=== PATIENT | female | born 1960 | race Caucasian/White ===

== ENCOUNTER 2017-03-06 08:17 | Emergency (ER) | payer SELFPAY ==
[~2017-03-06] VITALS: Ht 152.4 cm; Wt 76.0 kg
[~2017-03-06 08:17] MED LIST: HYDR-3533 PO; NAPR500 PO
[2017-03-06 08:26] VITALS: BP 157/94; PULSE 74; RESP 16; TEMP 99.4; O2SAT 96
[2017-03-06 08:35] LABS: BLOOD, URINE NEG (NEG); GLUCOSE,URINE NEG (NEG); KETONE, URINE NEG (NEG); PH, URINE 5.5 (5.0-8.5)
[2017-03-06] MEDS ORDERED: METH10CO3 PO (08:39)
[2017-03-06 08:40] LABS: NITRITE,URINE POS (NEG)
[2017-03-06 08:41] LABS: METHOD OF COLLECTION CLEAN CATCH; URINE COLOR YELLOW (YELLW/STRAW)
[2017-03-06 08:42] LABS: BACTERIA, URINE FEW /hpf; COMMENT (UR) CULTURE INDICATED; CULTURE IF INDICATED CULTURE INDICATED; SQUAMOUS EPITHELIAL CELL URINE 0-5 /hpf (0-5); WBC, URINE 15-19 /hpf (0-5)
[2017-03-06] MEDS ORDERED: NITROFURANTOIN MONOHYD MACROCR 100 MG CAP PO ONE (08:45)
--- NOTE | 2017-03-06 08:45 | PD ---
HPI Chief Complaint: Complaint Time Seen by Provider: 08:45 Travel History International Travel<30 days: No Contact w/Intl Traveler<30days: No Traveled to known affect area: No History of Present Illness HPI 56-year-old female came to the emergency room with history of dysuria and feeling like she may have UTI. This has been going on for past couple days. Patient says she also has history of uterine prolapse and that has been bothering her. She does not have insurance currently and hence doesn't have a doctor. However upon asking she said she didn't want me to check her "down there"and she was okay without things are currently. Vital signs were otherwise stable. She has been taking [id number] Pyridium and it's making her nauseous. PFSH Past Medical History Narrative Medical List of her past medical, surgical, social and family history was reviewed from the nursing note. Hx Anticoagulant Therapy: No Cancer: No Cardiovascular Problems: No Diabetes: No Diminished Hearing: No Genitourinary: Yes ( prolapsed bladder) Hepatitis: Yes ("C") Hypertension: Yes Musculoskeletal: Yes (herniated disc) Immunizations Current: Yes Influenza Vaccination: No ?: Not Menopausal: Yes Tubal Ligation: Yes (1991) Past Surgical History Gynecologic Surgery: Yes (OVARIAN tumor REMOVED [id number]) Hysterectomy: No Other Surgery: Yes (corrective bilateral feet 1980) Social History Alcohol Use: No Tobacco Use: Yes (1 ppd) Substance Use: No (HX OF) Allergies-Medications (Allergen,Severity, Reaction): Coded Allergies: Flexeril (Verified Allergy, Severe, VOMITING, 03/06/17) Toradol (Verified Allergy, Severe, VOMITING, 03/06/17) Comments List of her allergies reviewed from the nursing note. Reported Meds & Prescriptions Reported Meds & Active Scripts Active Macrobid (Nitrofurantoin Monoh/Nitrofur Macro) 100 Mg Cap 100 Mg PO BID 7 Days Reported Methadone Intensol Liq (Methadone HCl) 10 Mg/Ml Conc 65 Mg PO DAILY Narrative Medication List of her home medications reviewed from the nursing note. Review of Systems Except as stated in HPI: all other systems reviewed are Neg Physical Exam Narrative GENERAL: Awake, alert, no obvious distress SKIN: Focused skin assessment warm/dry. HEAD: Atraumatic. Normocephalic. EYES: Pupils equal and round. No scleral icterus. No injection or drainage. ENT: No nasal bleeding or discharge. Mucous membranes pink and moist. NECK: Trachea midline. No JVD. CARDIOVASCULAR: Regular rate and rhythm. No murmur appreciated. RESPIRATORY: No accessory muscle use. Clear to auscultation. Breath sounds equal bilaterally. GASTROINTESTINAL: Abdomen soft, non-tender, nondistended. Hepatic and splenic margins not palpable. MUSCULOSKELETAL: No obvious deformities. No clubbing. No cyanosis. No edema. NEUROLOGICAL: Awake and alert. No obvious cranial nerve deficits. Motor grossly within normal limits. Normal speech. PSYCHIATRIC: Appropriate mood and affect; insight and judgment normal. Data Data Last Documented VS Vital Signs Date Time Temp Pulse Resp B/P Pulse Ox O2 Delivery O2 Flow Rate FiO2 03/06/17 08:26 99.4 74 16 157/94 96 Orders Urinalysis - C+S If Indicated (03/06/17 08:27) Nitrofurantoin Monohyd Macrocr (Macrobid (03/06/17 08:45) Urine Culture (03/06/17 08:30) Labs Laboratory Tests Test 03/06/17 08:30 Urine Collection Type CLEAN CATCH Urine Color YELLOW Urine Turbidity CLEAR Urine pH 5.5 Urine Specific [place] 1.009 Urine Protein NEG mg/dL Urine Glucose (UA) NEG mg/dL Urine Ketones NEG mg/dL Urine Occult Blood NEG Urine Nitrite POS Urine Bilirubin NEG Urine Leukocyte Esterase SMALL Urine WBC 15-19 /hpf Urine Squamous Epithelial 0-5 /hpf Cells Urine Bacteria FEW /hpf Urine Yeast (Budding) MOD Microscopic Urinalysis Comment CULTURE INDICATED Urine Collection Time 08:30 [facility] Medical Decision Making Medical Screen Exam Complete: Yes Emergency Medical Condition: Yes Medical Record Reviewed: Yes Differential Diagnosis UTI, cystitis Narrative Course 8:50 AM UA suggestive of UTI/cystitis. I've ordered a dose of Macrobid and prescription to go home with. Patient will be discharged Procedures EKG Prior to Arrival: No Diagnosis Primary Impression: UTI (urinary tract infection) Qualified Code: N39.0 - Urinary tract infection without hematuria, site unspecified Referrals: Primary Care Physician 2 days Additional Instructions: Please return to the ER if the condition worsens or any other new concerns. Otherwise follow-up with your primary care in couple days. Take the medications as per the prescription direction. Drink lots of water and cranberry juice to keep urine flowing clean. Med/Other Pt SpecificInfo: Prescription(s) given Scripts Nitrofurantoin Monohydrate Macrocrystals (Macrobid)100 Mg [id number] Mg PO BID 7 Days Ref 0 Prov:Aline Bravo MD 03/06/17 Disposition: 01 DISCHARGE HOME Condition: Stable Aline Bravo MD March 06, 2017 08:45
[2017-03-06] MEDS ORDERED: MACR100C2 PO (08:50)
== END 2017-03-06 09:08 | disposition home or self-care (01) ==
LOC: PHED 08:17
DX: N39.0 Urinary tract infection, site not specified (principal); I10 Essential (primary) hypertension; Z72.0 Tobacco use; Z86.19 Personal history of other infectious and parasitic diseases; Z88.5 Allergy status to narcotic agent; Z88.8 Allergy status to other drugs, medicaments and biological substances; Z79.899 Other long term (current) drug therapy
CPT/HCPCS: 81001; 87086; 99283

== ENCOUNTER 2017-06-19 08:18 | Emergency (ER) | payer SELFPAY ==
[~2017-06-19] VITALS: Ht 152.4 cm; Wt 78.6 kg
[~2017-06-19 08:18] MED LIST changes: -HYDR-3533 PO; +MACR100C2 PO; +METH10CO3 PO; -NAPR500 PO
[2017-06-19 08:25] VITALS: BP 166/86; PULSE 83; RESP 16; TEMP 98.6; O2SAT 96
[2017-06-19] MEDS ORDERED: predniSONE 20 MG TAB PO ONE (08:45)
[2017-06-19 08:54] LABS: BLOOD, URINE NEG (NEG); GLUCOSE,URINE NEG (NEG); KETONE, URINE NEG (NEG); NITRITE,URINE NEG (NEG); PH, URINE 6.5 (5.0-8.5)
[2017-06-19 09:00] LABS: COMMENT (UR) CULT NOT INDICATED; CULTURE IF INDICATED CULT NOT INDICATED; METHOD OF COLLECTION CLEAN CATCH; RBC, URINE 0-3 /hpf (0-3); SQUAMOUS EPITHELIAL CELL URINE 0-5 /hpf (0-5); URINE COLOR YELLOW (YELLW/STRAW)
--- NOTE | 2017-06-19 09:32 | PD ---
HPI Chief Complaint: Back/ Neck Pain or Injury Time Seen by Provider: 08:36 Travel History International Travel<30 days: No Contact w/Intl Traveler<30days: No Traveled to known affect area: No History of Present Illness HPI 57 yo F c/o low back pain x 3 days. Similar prior episodes have occurred and we treated as UTI. No numbness/tingling saddle distribution. No fecal incontinence or overflow urinary incontinence. No fever. No vomiting. Severity mild. PFSH Past Medical History Hx Anticoagulant Therapy: No Cancer: No Cardiovascular Problems: No Diabetes: No Diminished Hearing: No Genitourinary: Yes ( prolapsed bladder) Hepatitis: Yes ("C") Hypertension: Yes Musculoskeletal: Yes (herniated disc) Immunizations Current: Yes ?: Not Menopausal: Yes Tubal Ligation: Yes (1991) Past Surgical History Gynecologic Surgery: Yes (OVARIAN tumor REMOVED [id number]) Hysterectomy: No Other Surgery: Yes (corrective bilateral feet 1980) Social History Alcohol Use: No Tobacco Use: Yes (1 ppd) Substance Use: No (HX OF) Allergies-Medications (Allergen,Severity, Reaction): Coded Allergies: cyclobenzaprine (Unverified Allergy, Severe, VOMITING, 06/11/17) ketorolac (Unverified Allergy, Severe, VOMITING, 06/11/17) Reported Meds & Prescriptions Reported Meds & Active Scripts Active Macrobid (Nitrofurantoin Monoh/Nitrofur Macro) 100 Mg Cap 100 Mg PO BID 7 Days Reported Methadone Intensol Liq (Methadone HCl) 10 Mg/Ml Conc 65 Mg PO DAILY Review of Systems Except as stated in HPI: all other systems reviewed are Neg General / Constitutional: No: Fever Physical Exam Narrative GENERAL: 57 yo F, WNWD SKIN: Warm and dry. HEAD: Atraumatic. Normocephalic. EYES: Pupils equal and round. No scleral icterus. No injection or drainage. ENT: No nasal bleeding or discharge. Mucous membranes pink and moist. NECK: Trachea midline. No JVD. CARDIOVASCULAR: Regular rate and rhythm. RESPIRATORY: No accessory muscle use. Clear to auscultation. Breath sounds equal bilaterally. GASTROINTESTINAL: Abdomen soft, non-tender, nondistended. Hepatic and splenic margins not palpable. No flank tenderness. MUSCULOSKELETAL: Extremities without clubbing, cyanosis, or edema. No obvious deformities. NO focal spinal tenderness. NEUROLOGICAL: Awake and alert. No obvious cranial nerve deficits. Motor grossly within normal limits. Five out of 5 muscle strength in the arms and legs. Normal speech. 2+ patellar tendon reflex. Toe flexion/extension 5/5 bilaterally. Ambulatory with normal gait. PSYCHIATRIC: Appropriate mood and affect; insight and judgment normal. Data Data Last Documented VS 98.6 83 16 166/86 Pulse ox 96% Orders Orders Urinalysis - C+S If Indicated (06/19/17 08:43) Prednisone (Deltasone) (06/19/17 08:45) Labs Laboratory Tests Test 06/19/17 08:40 Urine Collection Type CLEAN CATCH Urine Color YELLOW Urine Turbidity CLEAR Urine pH 6.5 Urine Specific [place] 1.014 Urine Protein NEG mg/dL Urine Glucose (UA) NEG mg/dL Urine Ketones NEG mg/dL Urine Occult Blood NEG Urine Nitrite NEG Urine Bilirubin NEG Urine Leukocyte Esterase NEG Urine RBC 0-3 /hpf Urine Squamous Epithelial Cells 0-5 /hpf Microscopic Urinalysis Comment CULT NOT INDICATED Urine Collection Time 08:40 [facility] Medical Decision Making Medical Screen Exam Complete: Yes Emergency Medical Condition: Yes Medical Record Reviewed: Yes Differential Diagnosis UTI, myofascial strain, spinal stenosis, epidural abscess, paraspinal hematoma Narrative Course Exam is benign. Multiple prior visits for back pain on record. UA: No UTI OTC analgesia Return precautions discussed. Follow up with PMD. Diagnosis Primary Impression: Low back pain Qualified Codes: M54.5 - Low back pain Referrals: Elvis Lebron MD PhD 2 days Additional Instructions: You have a choice when it comes to health care, and we are glad that you chose [facility]. Hopefully, we have met your expectations on today's visit. You are welcome to return to [facility] at any time, as we are committed to meeting the health care needs of our community. Med/Other Pt SpecificInfo: No Change to Meds Disposition: 01 DISCHARGE HOME Condition: Stable Jonathan Jose MD Jun 19, 2017 09:32
== END 2017-06-19 10:01 | disposition home or self-care (01) ==
LOC: PHED 08:18
DX: M54.5 Low back pain (principal); F17.210 Nicotine dependence, cigarettes, uncomplicated; B19.20 Unspecified viral hepatitis C without hepatic coma
CPT/HCPCS: 81001; 99283; J7512